=== PATIENT | male | born 1940 | race Caucasian/White ===

== ENCOUNTER 2017-11-03 13:08 | Outpatient (CLI) | payer MEDICARE, BC ==
--- NOTE | 2017-11-03 15:12 | RAD ---
TWO VIEW CHEST: COMPARISON: No prior comparison. CLINICAL HISTORY: Cough for 2 weeks. FINDINGS: There is patchy left basilar opacity. There is no lobar consolidation of the right lung. The cardia c silhouette is at upper limits of normal in size. No significant vascular congestion. There is oss eous degenerative change. IMPRESSION: Patchy left basilar opacity could relate to atelectasis, or alternatively a focal area of pneumonia. Short-term followup would prove useful to confirm resolution. POS: [facility]
== END 2017-11-03 13:09 | disposition home or self-care (01) ==
LOC: MADRAD 13:08
PROVIDERS: ATTEND Physician Assistant
DX: R05 Cough (principal); R91.8 Other nonspecific abnormal finding of lung field
CPT/HCPCS: 71046

== ENCOUNTER 2017-11-16 09:35 | Outpatient (CLI) | payer MEDICARE, BC ==
--- NOTE | 2017-11-16 10:54 | RAD ---
CHEST PA AND LATERAL: History: 77-year-old male with history of infectious pneumonia. Comparison: 11-03-17 FINDINGS: Heart size is within normal limits. Atherosclerosis of the aorta. There is a 1.3 cm diameter nodular focus seen on the PA radiograph between the left 7th and 8th rib interspace. No confluent pneumonia o r acute edema. No pleural effusion. IMPRESSION: 1.3 cm diameter nodule seen in the left midlung zone. Follow chest CT scan with IV contrast is recomm ended for further assessment. No evidence of pneumonia. Atherosclerosis of the aorta with ectasia. Code T POS: [facility]
== END 2017-11-16 09:36 | disposition home or self-care (01) ==
LOC: MADRAD 09:35
PROVIDERS: ATTEND Physician Assistant
DX: J18.9 Pneumonia, unspecified organism (principal); R91.1 Solitary pulmonary nodule; I70.0 Atherosclerosis of aorta; I77.819 Aortic ectasia, unspecified site
CPT/HCPCS: 71046

== ENCOUNTER 2017-12-02 09:52 | Outpatient (CLI) | payer MEDICARE, BC ==
[2017-12-02] MEDS ORDERED: Iopamidol 370 76% 100 ML VIAL ONE (10:37)
--- NOTE | 2017-12-02 13:57 | CT ---
CT CHEST WITH CONTRAST: CLINICAL HISTORY: Abnormal chest radiograph. Imaging followup. History of infectious pneumonia. COMPARISON: Reference made to 11/16/2017 chest radiograph. FINDINGS: There are calcified pleural plaques bilaterally, one of which, within the anterior left pleural space , does correlate to radiographic opacity described on prior chest radiograph. There is no evidence o f pulmonary mass or suspicious nodule. No effusion or pneumothorax. Scattered vascular disease is p resent. There are scattered osseous degenerative changes. IMPRESSION: Calcified pleural plaques, indicating asbestos related pleural disease. A calcified pleural plaque o f the anterior left pleural space does correlate to region of radiographic opacity. POS: [facility]
== END 2017-12-02 09:53 | disposition home or self-care (01) ==
LOC: MADRAD 09:52
PROVIDERS: ATTEND Physician Assistant
DX: R05 Cough (principal); J92.9 Pleural plaque without asbestos
CPT/HCPCS: 36415; 71260; 82565

== ENCOUNTER 2019-05-03 13:26 | Outpatient (CLI) | payer MEDICARE, BC ==
--- NOTE | 2019-05-03 13:43 | RAD ---
EXAM: 3 views of the lumbosacral spine HISTORY: Low back pain COMPARISON: None FINDINGS: 3 views of the lumbosacral spine shows normal height and alignment of the vertebral bodies and intervertebral discs without fracture or subluxation. Moderate degenerative changes are seen throughout the lumbar spine with moderate osteophyte formation. The sacroiliac joints are unremarkable. IMPRESSION: Degenerative changes of the lumbar spine without acute osseous abnormality.
== END 2019-05-03 13:27 | disposition home or self-care (01) ==
LOC: MADRAD 13:26
PROVIDERS: ATTEND Physician Assistant
DX: M54.5 Low back pain (principal); M47.816 Spondylosis without myelopathy or radiculopathy, lumbar region
CPT/HCPCS: 72100

== ENCOUNTER 2023-05-11 13:29 | Emergency (ER) | payer MEDICARE, BC | END 2023-05-11 15:25 | disposition home or self-care (01) | LOC: MADERS 13:29 | DX: S30.0XXA Contusion of lower back and pelvis, initial encounter (principal); I48.91 Unspecified atrial fibrillation; I10 Essential (primary) hypertension; K21.9 Gastro-esophageal reflux disease without esophagitis; E78.00 Pure hypercholesterolemia, unspecified; W01.198A Fall on same level from slipping, tripping and stumbling with subsequent striking against other object, initial encounter; Z79.01 Long term (current) use of anticoagulants; Z79.899 Other long term (current) drug therapy | CPT/HCPCS: 72072; 72100; 72170 ==

== ENCOUNTER 2023-05-24 15:28 | Outpatient (CLI) | payer MEDICARE, BC | END 2023-05-24 15:29 | disposition home or self-care (01) | LOC: MADRAD 15:28 | PROVIDERS: ATTEND Physician Assistant | DX: R05.3 Chronic cough (principal) | CPT/HCPCS: 71046 ==

== ENCOUNTER 2023-12-07 12:43 | Outpatient (CLI) | payer MEDICARE, BC | END 2023-12-07 12:44 | disposition home or self-care (01) | LOC: MADLAB 12:43 | PROVIDERS: ATTEND Physician Assistant | DX: R05.1 Acute cough (principal) | CPT/HCPCS: 71046 ==

== ENCOUNTER 2024-06-29 10:06 | Outpatient (CLI) | payer MEDICARE, BC | END 2024-06-29 10:07 | disposition home or self-care (01) | LOC: MADRAD 10:06 | PROVIDERS: ATTEND Physician Assistant | DX: M54.50 Low back pain, unspecified (principal); M47.816 Spondylosis without myelopathy or radiculopathy, lumbar region | CPT/HCPCS: 72100 ==

== ENCOUNTER 2024-11-29 09:26 | Outpatient (CLI) | payer MEDICARE, BC ==
[2024-11-29 10:03] LABS: Anion Gap 14 mmol/L (10-20); BUN (Urea Nitrogen) 28 mg/dL (8.4-25.7); Calc. Creatinine Clearance 0 mL/min (70-130); Calcium 9.4 mg/dL (7.8-10.44); Carbon Dioxide 27 mmol/L (23-31); Chloride 105 mmol/L (98-107); Glucose 137 mg/dL (83-110); Potassium 4.1 mmol/L (3.5-5.1); Sodium 142 mmol/L (136-145)
== END 2024-11-29 09:27 | disposition home or self-care (01) ==
LOC: MADLAB 09:26
PROVIDERS: ATTEND Specialist
DX: R06.02 Shortness of breath (principal); Z79.899 Other long term (current) drug therapy
CPT/HCPCS: 36415; 80048